=== PATIENT | female | born 1960 | race Caucasian/White ===

== ENCOUNTER 2019-09-12 06:37 | Day surgery (SDC) | payer BC ==
[2019-09-12] MEDS ORDERED: IV LACTATED RINGERS SOLUTION 1,000 ML BAG IV ONE (06:38)
[2019-09-12] MEDS ORDERED: ONDANSETRON 4 MG/2 ML VIAL IV ONE (06:38)
[2019-09-12] MEDS ORDERED: ESMOLOL HCL 100 MG/10 ML VIAL IV ONE (06:38)
[2019-09-12] MEDS ORDERED: LIDOCAINE-MPF 2% 5 ML VIAL IJ ONE (06:38)
[2019-09-12] MEDS ORDERED: KETOROLAC TROMETHAMINE 30 MG INJ IM ONE (06:38)
[2019-09-12] MEDS ORDERED: DEXAMETHASONE SOD PHOSPHATE 4 MG INJ IV ONE (06:38)
[2019-09-12] MEDS ORDERED: SEVOFLURANE 250 ML BOTTLE IH ONE (06:38)
[2019-09-12] MEDS ORDERED: IV NORMAL SALINE 1000 ML BAG IV ONE ×2 (06:38)
[2019-09-12] MEDS ORDERED: PROPOFOL 200 MG/20 ML BOTTLE IV ONE (06:38)
[2019-09-12] MEDS ORDERED: GLYCOPYRROLATE 0.2 MG/ML VIAL IJ ONE (06:38)
[2019-09-12] MEDS ORDERED: NEOSTIGMINE METHYLSULFATE 10 MG/10 ML VIAL IM ONE (06:38)
[2019-09-12] MEDS ORDERED: CEFAZOLIN 1 G VIAL IM ONE (06:38)
[2019-09-12] MEDS ORDERED: POLYMYXIN B SULFATE 500,000 UNITS, BACITRACIN 50,000 UNITS, NORMAL SALINE 20 ML MC ONE ×3 (08:00)
[2019-09-12] MEDS ORDERED: BUPIVACAINE/EPI PF 0.5% 10 ML VIAL ONE (08:57)
[2019-09-12] MEDS ORDERED: BUPIVACAINE PF 0.5% 30 ML VIAL ONE (08:57)
[2019-09-12 09:10] LABS: *BILIRUBIN,URIN NEGATIVE (NEGATIVE); *CLARITY,URINE CLEAR (CLEAR); *COLOR,URINE YELLOW (YELLOW); *KETONES,URINE NEGATIVE (NEGATIVE); *UROBILINOGEN,URINE 0.2 E.U./dl (NORMAL); LEUKOCYTE ESTERASE ,URINE TRACE (NEGATIVE); NITRITE, URINE NEGATIVE (NEGATIVE); PH,URINE 5.5 (5.0-8.0); UGLUCOSE NEGATIVE (NEGATIVE)
[2019-09-12 09:13] LABS: *BLOOD, URINE TRACE INTACT (NEGATIVE)
[2019-09-12 09:29] LABS: BACTERIA,URINE NONE SEEN /HPF (NONE SEEN); RBC,URINE 0-3 /HPF (0-3); SQUAMOUS EPITHELIAL CELL,UR NONE SEEN /HPF (NONE SEEN); WBC,URINE 0-3 /HPF (0-3)
[2019-09-12] MEDS ORDERED: ROCURONIUM BROMIDE 50 MG/5 ML VIAL ONE (09:44)
[2019-09-12] MEDS ORDERED: HYDROMORPHONE 2 MG/1 ML DISP.SYRIN ONE (09:44)
[2019-09-12] MEDS ORDERED: FENTANYL CITRATE 100 MCG/2 ML AMPUL ONE (11:37)
[2019-09-12] MEDS ORDERED: ONDANSETRON 4 MG/2 ML VIAL ONE (11:38)
[2019-09-12] MEDS ORDERED: HYDROMORPHONE 1 MG/1 ML DISP.SYRIN ONE (12:20)
[2019-09-12] MEDS ORDERED: HYDROCODONE/APAP 10-325 MG TABLET ONE (13:01)
== END 2019-09-12 14:05 | disposition home or self-care (01) ==
LOC: DS 06:37
PROVIDERS: ATTEND Orthopaedic Surgery Sports Medicine
DX: S43.015A Anterior dislocation of left humerus, initial encounter (principal); M25.312 Other instability, left shoulder; E03.9 Hypothyroidism, unspecified; I10 Essential (primary) hypertension; M19.90 Unspecified osteoarthritis, unspecified site; F15.90 Other stimulant use, unspecified, uncomplicated; Z90.49 Acquired absence of other specified parts of digestive tract; Z98.890 Other specified postprocedural states; Z82.49 Family history of ischemic heart disease and other diseases of the circulatory system; Z79.899 Other long term (current) drug therapy; X58.XXXA Exposure to other specified factors, initial encounter; Y93.89 Activity, other specified; Y92.89 Other specified places as the place of occurrence of the external cause; Y99.8 Other external cause status
CPT/HCPCS: 29806; 81000; 81001; C1713; J1170 ×2; J2405; J3010; J3490 ×2; J7120 ×2; A4663; J0690; J1100; J1885; J2710; J7030